=== PATIENT | male | born 1975 | race Caucasian/White ===

== ENCOUNTER 2017-01-15 00:25 | Emergency (ER) | payer SELFPAY ==
[2017-01-15 00:42] VITALS: BP 146/93; TEMP 98.3; O2SAT 100
[2017-01-15 00:43] VITALS: BMI 27.3
--- NOTE | 2017-01-15 00:57 | ED PDOC ---
Arrival/HPI - General Chief Complaint: Substance Abuse Time Seen by Provider: 01/15/17 00:50 Historian: Patient - History of Present Illness Narrative History of Present Illness (Text): 01/15/17 00:54 Trever Smart is a 41 year old male smoker who presents to the Emergency department complaining of right arm pain after accidentally falling on to his right arm tonight. Patient states he feels fine. Patient admits to occasional recreational marijuana use. Patient denies any weakness/numbness/tingling in the extremity, chest pain, shortness of breath, back pain, neck pain, headache , dizziness, or any other complaints. Time/Duration: Other (tonight) Symptom Onset: Gradual Symptom Course: Unchanged Activities at Onset: Rest, Light Context: Home Past Medical History - Provider Review Nursing Documentation Reviewed: Yes - Infectious Disease Hx of Infectious Diseases: None - Tetanus Immunization Tetanus Immunization: Unknown - Past Medical History Past Medical History: No Previous - Genitourinary/Gynecological Hx Genitourinary Disorders: No - Psychiatric Hx Depression: No Hx Emotional Abuse: No Hx Physical Abuse: No Hx Substance Use: Yes (pcp) - Past Surgical History Past Surgical History: No Previous - Anesthesia Hx Anesthesia: No - Suicidal Assessment Feels Threatened In Home Enviroment: No Family/Social History - Physician Review Nursing Documentation Reviewed: Yes Family/Social History: No Known Family HX Smoking Status: Never Smoked Hx Alcohol Use: Yes Hx Substance Use: Yes (pcp) Allergies/Home Meds Allergies/Adverse Reactions: Allergies No Known Allergies Allergy (Verified 01/15/17 00:44) Review of Systems - Physician Review All systems were reviewed & negative as marked: Yes - Review of Systems Constitutional: Normal. absent: Fevers Eyes: Normal ENT: Normal Respiratory: Normal. absent: SOB, Cough Cardiovascular: Normal. absent: Chest Pain Gastrointestinal: Normal. absent: Abdominal Pain, Diarrhea, Nausea, Vomiting Genitourinary Male: Normal. absent: Dysuria, Frequency, Hematuria, Urinary Output Changes Musculoskeletal: Other (+right arm pain). absent: Back Pain, Neck Pain Skin: Normal. absent: Rash Neurological: Normal. absent: Headache, Dizziness Endocrine: Normal Hemo/Lymphatic: Normal Psychiatric: Normal Physical Exam Vital Signs Reviewed: Yes Vital Signs Temp Pulse Resp BP Pulse Ox 01/15/17 00:41 98.3 F 80 18 146/93 H 100 Temperature: Afebrile Blood Pressure: Normal Pulse: Regular Respiratory Rate: Normal Appearance: Positive for: Well-Appearing, Non-Toxic, Comfortable Pain Distress: None Mental Status: Positive for: Alert and Oriented X 3 - Systems Exam Head: Present: Atraumatic, Normocephalic Pupils: Present: PERRL Extroacular Muscles: Present: EOMI Conjunctiva: Present: Normal Mouth: Present: Moist Mucous Membranes Neck: Present: Normal Range of Motion Respiratory/Chest: Present: Clear to Auscultation, Good Air Exchange. No: Respiratory Distress, Accessory Muscle Use Cardiovascular: Present: Regular Rate and Rhythm, Normal S1, S2. No: Murmurs Abdomen: Present: Normal Bowel Sounds. No: Tenderness, Distention, Peritoneal Signs Upper Extremity: Present: Normal Inspection, Normal ROM, NORMAL PULSES, Neurovascularly Intact, Capillary Refill < 2s. No: Cyanosis, Edema, Tenderness , Swelling, Erythema, Temperature Abnormalties, Deformity Lower Extremity: Present: Normal Inspection. No: Edema Neurological: Present: GCS=15, CN II-XII Intact, Speech Normal Skin: Present: Warm, Dry, Normal Color. No: Rashes Psychiatric: Present: Alert, Oriented x 3, Normal Insight, Normal Concentration Medical Decision Making ED Course and Treatment: 01/15/17 00:54 Impression: 41 year old male complaining of right arm pain s/p fall tonight. Differential Diagnosis include but are not limited to: fracture vs. contusion vs. sprain Plan: -- XR Right Elbow -- XR Right Shoulder -- Reassess and disposition Progress Notes: 01/15/17 03:04 Reviewed radiology, XR Right Shoulder shows no evidence of acute fracture. XR Right Elbow shows no evidence of acute fracture. 01/15/17 03:15 On re-evaluation, the patient feels better and is in no acute distress. I have discussed the results and plan with the patient, who expresses understanding. Patient in agreement with plan to discharged home. Patient is stable for discharge. Patient was instructed to follow up with physician/clinic in 1-2 days or return if symptoms worsen or new concerning symptoms arise. - RAD Interpretation Radiology Orders: 01/15/17 00:54 ELBOW RIGHT 3 VIEWS ROUTINE [RAD] Stat 01/15/17 00:55 SHOULDER RIGHT [RAD] Stat Office Automation Clerk: ED Physician - Medication Orders Current Medication Orders: Discontinued Medications Ibuprofen (Motrin Tab) 400 mg PO STAT STA Stop: 01/15/17 01:00 Last Admin: 01/15/17 01:23 Dose: 400 MG MAR Pain/Vitals Document 01/15/17 01:23 EKEOO (Rec: 01/15/17 01:24 EKEOO [id number]) Pain Reassessment Is This A Pain ReAssessment? No Sleep Is patient sleeping during reassessment? No Presence of Pain Presence of Pain Yes - Scribe Statement The provider has reviewed the documentation as recorded by the Jeremiah Armenta Provider Attestation: All medical record entries made by the Sixtoibbritton were at my direction and personally dictated by me. I have reviewed the chart and agree that the record accurately reflects my personal performance of the history, physical exam, medical decision making, and the department course for this patient. I have also personally directed, reviewed, and agree with the discharge instructions and disposition. Disposition/Present on Arrival - Present on Arrival Any Indicators Present on Arrival: No History of DVT/PE: No History of Uncontrolled Diabetes: No Urinary Catheter: No History of Decub. Ulcer: No History Surgical Site Infection Following: None - Disposition Have Diagnosis and Disposition been Completed?: Yes Diagnosis: Shoulder strain, Elbow strain Disposition: HOME/ ROUTINE Disposition Time: 03:14 Patient Plan: Discharge Condition: GOOD Discharge Instructions (ExitCare): Muscle Strain (ED) Additional Instructions: Rest/no strenuous physical activity/advil as directed/follow up with your doctor
[2017-01-15 03:33] VITALS: PULSE 77; RESP 16
--- NOTE | 2017-01-15 07:25 | RAD ---
PROCEDURE: Radiographs of the right elbow. HISTORY: injury COMPARISON: No prior. FINDINGS: BONES: Benign-appearing bone island - humeral capitellum. No fracture. JOINTS: Normal. No osteoarthritis. SOFT TISSUES: Normal. JOINT EFFUSION: None. OTHER FINDINGS: None. IMPRESSION: Unremarkable radiographs of the right elbow.
--- NOTE | 2017-01-15 07:25 | RAD ---
PROCEDURE: Radiographs of the Right Shoulder HISTORY: injury COMPARISON: No prior. FINDINGS: BONES: Normal. No fracture. JOINTS: Normal. Glenohumeral and acromioclavicular joints preserved. No osteoarthritis. SOFT TISSUES: Normal. OTHER FINDINGS: None. IMPRESSION: Normal radiographs of the right shoulder.
== END 2017-01-15 03:38 | disposition home or self-care (01) ==
LOC: ED 00:25
DX: S46.911A Strain of unspecified muscle, fascia and tendon at shoulder and upper arm level, right arm, initial encounter (principal); W19.XXXA Unspecified fall, initial encounter; Y92.009 Unspecified place in unspecified non-institutional (private) residence as the place of occurrence of the external cause; F17.210 Nicotine dependence, cigarettes, uncomplicated

== ENCOUNTER 2017-01-26 01:23 | Emergency (ER) | payer SELFPAY ==
[2017-01-26 01:44] VITALS: BP 147/98; PULSE 96; RESP 16; TEMP 98.4; O2SAT 98; BMI 27.3
--- NOTE | 2017-01-26 01:47 | ED PDOC ---
Arrival/HPI - General Time Seen by Provider: 01/26/17 01:31 Historian: Patient, EMS - History of Present Illness Narrative History of Present Illness (Text): 01/26/17 01:46 44 year old male brought in by EMS for possible substance/alcohol abuse tonight after patient was found outside behaving oddly. Patient reports he used PCP tonight and has been drinking alcohol. Patient denies any fever, chills, chest pain, shortness of breath, nausea, vomiting, diarrhea, urinary symptoms, back pain, neck pain, headache, dizziness, or any other complaints. Time/Duration: Other (tonight) Symptom Course: Unchanged Activities at Onset: Rest, Light Context: Home Past Medical History - Provider Review Nursing Documentation Reviewed: Yes Family/Social History - Physician Review Nursing Documentation Reviewed: Yes Family/Social History: No Known Family HX Allergies/Home Meds Allergies/Adverse Reactions: Allergies Unobtainable Allergy (Verified 01/26/17 01:50) Home Medications: Home Meds Medication Instructions Recorded Confirmed Unobtainable 01/26/17 01/26/17 Review of Systems - Physician Review All systems were reviewed & negative as marked: Yes - Review of Systems Constitutional: Normal. absent: Fevers Eyes: Normal ENT: Normal Respiratory: Normal. absent: SOB, Cough Cardiovascular: Normal. absent: Chest Pain Gastrointestinal: Normal. absent: Abdominal Pain, Diarrhea, Nausea, Vomiting Genitourinary Male: Normal. absent: Dysuria, Frequency, Hematuria, Urinary Output Changes Musculoskeletal: Normal. absent: Back Pain, Neck Pain Skin: Normal. absent: Rash Neurological: Normal. absent: Headache, Dizziness Endocrine: Normal Hemo/Lymphatic: Normal Psychiatric: Other (+possible substance abuse) Physical Exam Vital Signs Reviewed: Yes Vital Signs Temp Pulse Resp BP Pulse Ox 01/26/17 01:42 98.4 F 96 H 16 147/98 H 98 Temperature: Afebrile Blood Pressure: Normal Pulse: Regular Respiratory Rate: Normal Appearance: Positive for: Well-Appearing, Comfortable Pain Distress: None Mental Status: Positive for: Alert and Oriented X 3 - Systems Exam Head: Present: Atraumatic, Normocephalic Pupils: Present: PERRL Extroacular Muscles: Present: EOMI Conjunctiva: Present: Normal Mouth: Present: Moist Mucous Membranes Neck: Present: Normal Range of Motion Respiratory/Chest: Present: Clear to Auscultation, Good Air Exchange. No: Respiratory Distress, Accessory Muscle Use Cardiovascular: Present: Regular Rate and Rhythm, Normal S1, S2. No: Murmurs Abdomen: Present: Normal Bowel Sounds. No: Tenderness, Distention, Peritoneal Signs Back: Present: Normal Inspection Upper Extremity: Present: Normal Inspection. No: Cyanosis, Edema Lower Extremity: Present: Normal Inspection. No: Edema Neurological: Present: GCS=15, CN II-XII Intact, Speech Normal Skin: Present: Warm, Dry, Normal Color. No: Rashes Psychiatric: Present: Alert, Oriented x 3 Medical Decision Making ED Course and Treatment: 01/26/17 01:46 Impression: 44 year old male brought in for possible substance abuse tonight. Plan: -- Reassess and disposition Progress Notes: - Lab Interpretations Lab Results: Lab Results 01/26/17 01:45: POC Glucose (mg/dL) 79 - Scribe Statement The provider has reviewed the documentation as recorded by the Sxitoibbritton Armenta Provider Attestation: All medical record entries made by the Sixtoibbritton were at my direction and personally dictated by me. I have reviewed the chart and agree that the record accurately reflects my personal performance of the history, physical exam, medical decision making, and the department course for this patient. I have also personally directed, reviewed, and agree with the discharge instructions and disposition. Disposition/Present on Arrival - Present on Arrival Any Indicators Present on Arrival: No - Disposition Have Diagnosis and Disposition been Completed?: Yes Diagnosis: Substance abuse Disposition: HOME/ ROUTINE Disposition Time: 02:00 Condition: FAIR Discharge Instructions (ExitCare): Polysubstance Abuse (ED) Referrals: PCP,NO [Primary Care Provider] - Follow up with primary
== END 2017-01-26 03:15 | disposition home or self-care (01) ==
LOC: ED 01:23 → MERGE 01:23 → ED 03:15
DX: F19.10 Other psychoactive substance abuse, uncomplicated (principal)

== ENCOUNTER 2017-01-29 03:28 | Emergency (ER) | payer SELFPAY ==
[2017-01-29 04:15] VITALS: RESP 18
[2017-01-29 04:39] VITALS: BMI 29.7
--- NOTE | 2017-01-29 05:28 | ED PDOC ---
Arrival/HPI - General Chief Complaint: Lower Extremity Problem/Injury Time Seen by Provider: 01/29/17 03:36 Historian: Patient - History of Present Illness Narrative History of Present Illness (Text): 01/29/17 05:24 Trever Smart is a 41 year old male, whose past medical history includes substance abuse, who presents to the Emergency department complaining of right 2nd toe pain tonight. Patient states he struck his foot against a dresser at home and partially tore the nail from his right 2nd toe with associated pain to the area. Patient denies any weakness/numbness/tingling in the extremity, or any other complaints. Time/Duration: Other (tonight) Symptom Course: Unchanged Activities at Onset: Rest, Light Context: Home Past Medical History - Provider Review Nursing Documentation Reviewed: Yes - Infectious Disease Hx of Infectious Diseases: None - Tetanus Immunization Tetanus Immunization: Unknown - Past Medical History Past Medical History: No Previous - Genitourinary/Gynecological Hx Genitourinary Disorders: No - Psychiatric Hx Depression: No Hx Emotional Abuse: No Hx Physical Abuse: No Hx Substance Use: Yes (pcp) - Past Surgical History Past Surgical History: No Previous - Anesthesia Hx Anesthesia: No - Suicidal Assessment Feels Threatened In Home Enviroment: No Family/Social History - Physician Review Nursing Documentation Reviewed: Yes Family/Social History: No Known Family HX Smoking Status: Never Smoked Hx Alcohol Use: Yes Hx Substance Use: Yes (pcp) Allergies/Home Meds Allergies/Adverse Reactions: Allergies No Known Allergies Allergy (Verified 01/15/17 00:44) Review of Systems - Physician Review All systems were reviewed & negative as marked: Yes - Review of Systems Constitutional: Normal. absent: Fevers Eyes: Normal ENT: Normal Respiratory: Normal. absent: SOB, Cough Cardiovascular: Normal. absent: Chest Pain Gastrointestinal: Normal. absent: Abdominal Pain, Diarrhea, Nausea, Vomiting Genitourinary Male: Normal. absent: Dysuria, Frequency, Hematuria, Urinary Output Changes Musculoskeletal: Other (+right 2nd toe pain). absent: Back Pain, Neck Pain Skin: Normal. absent: Rash Neurological: Normal. absent: Headache, Dizziness Endocrine: Normal Hemo/Lymphatic: Normal Psychiatric: Normal Physical Exam Vital Signs Reviewed: Yes Vital Signs Temp Pulse Resp BP Pulse Ox 01/29/17 07:16 98.2 F 86 18 122/70 99 01/29/17 04:16 98.4 F 107 H 124/76 98 01/29/17 04:12 97.9 F 66 18 122/76 99 Temperature: Afebrile Blood Pressure: Normal Pulse: Regular Respiratory Rate: Normal Appearance: Positive for: Well-Appearing, Non-Toxic, Comfortable Pain Distress: None Mental Status: Positive for: Alert and Oriented X 3 - Systems Exam Head: Present: Atraumatic, Normocephalic Pupils: Present: PERRL Extroacular Muscles: Present: EOMI Conjunctiva: Present: Normal Mouth: Present: Moist Mucous Membranes Neck: Present: Normal Range of Motion Respiratory/Chest: Present: Clear to Auscultation, Good Air Exchange. No: Respiratory Distress, Accessory Muscle Use Cardiovascular: Present: Regular Rate and Rhythm, Normal S1, S2. No: Murmurs Upper Extremity: Present: Normal Inspection. No: Cyanosis, Edema Lower Extremity: Present: Neurovascularly Intact, Capillary Refill < 2 s, Other (Avulsed nail of right 2nd toe). No: Edema Neurological: Present: GCS=15, CN II-XII Intact, Speech Normal, Motor Func Grossly Intact, Normal Sensory Function Skin: Present: Warm, Dry, Normal Color. No: Rashes Psychiatric: Present: Alert, Oriented x 3, Normal Insight, Normal Concentration Medical Decision Making ED Course and Treatment: 01/29/17 05:24 Impression: 41 year old male s/p right foot injury tonight. Plan: -- XR Right Foot, 2nd toe -- Reassess and disposition Prior Visits: Notes and results from previous visits were reviewed. Progress Notes: 01/29/17 06:19 Reviewed radiology, XR Right Foot shows no evidence of acute fracture. 01/29/17 06:00 Pt. with wound care to toe/cleansed with NS.Bacitracin/vaseline gauze sterile dressing applied to nail bed area - RAD Interpretation Radiology Orders: 01/29/17 05:24 FOOT RIGHT 2ND DIGIT (TOE) [RAD] Stat - Medication Orders Current Medication Orders: Discontinued Medications Oxycodone/Acetaminophen (Percocet 5/325 Mg Tab) 1 tab PO STAT STA Stop: 01/29/17 06:22 Last Admin: 01/29/17 06:32 Dose: 1 tab Tetanus/Reduced Diphtheria/Acell Pertussis (Boostrix Vaccine Inj) 0.5 ml IM .ONCE ONE Stop: 01/29/17 07:06 Last Admin: 01/29/17 07:14 Dose: 0.5 ml - Scribe Statement The provider has reviewed the documentation as recorded by the Sixtoibbritton Armenta All medical record entries made by the Scribe were at my direction and personally dictated by me. I have reviewed the chart and agree that the record accurately reflects my personal performance of the history, physical exam, medical decision making, and the department course for this patient. I have also personally directed, reviewed, and agree with the discharge instructions and disposition. Disposition/Present on Arrival - Present on Arrival Any Indicators Present on Arrival: No History of DVT/PE: No History of Uncontrolled Diabetes: No Urinary Catheter: No History of Decub. Ulcer: No History Surgical Site Infection Following: None - Disposition Have Diagnosis and Disposition been Completed?: Yes Diagnosis: Toenail avulsion Disposition: HOME/ ROUTINE Disposition Time: 07:06 Patient Plan: Discharge Condition: GOOD Additional Instructions: Keep area clean/apply bacitracin daily with clean dressing/follow up with the quilt maker this week. Referrals: Alex Eddy DPM [Staff Provider] - Follow up with primary Forms: WORK NOTE
[2017-01-29] MEDS ORDERED: Oxycodone/Acetaminophen 5/325 mg Tab PO STA (06:21)
[2017-01-29] MEDS ORDERED: TDAP Vaccine 0.5 mL Syr IM ONE (07:05)
--- NOTE | 2017-01-29 07:06 | RAD ---
PROCEDURE: HISTORY: injury COMPARISON: None TECHNIQUE: Three views FINDINGS: No fracture or dislocation. No bone destruction appreciated . No soft tissue pathology. IMPRESSION: Negative
[2017-01-29 07:17] VITALS: BP 122/70; PULSE 86; TEMP 98.2; O2SAT 99
== END 2017-01-29 07:21 | disposition home or self-care (01) ==
LOC: ED 03:28
DX: S91.204A Unspecified open wound of right lesser toe(s) with damage to nail, initial encounter (principal); W22.03XA Walked into furniture, initial encounter; Y92.009 Unspecified place in unspecified non-institutional (private) residence as the place of occurrence of the external cause; Z23 Encounter for immunization